=== PATIENT | male | born 1990 | race Caucasian/White ===

== ENCOUNTER 2020-07-03 17:08 | Emergency (ER) | payer OTHER ==
[~2020-07-03] VITALS: Ht 177.8 cm; Wt 100.0 kg
[2020-07-03] MEDS ORDERED: IV RINGERS SOLUTION,LACTATED 1,000 ML IV ONE ×2 (19:30→19:45)
[2020-07-03] MEDS ORDERED: KETOROLAC 30 MG/ML VIAL. IVP ONE (19:30)
--- NOTE | 2020-07-03 19:39 | PHYS DOC ---
Past History Past Medical History: Kidney Stones Past Surgical History: No Surgical History Alcohol Use: Occasionally General Adult EDM: Chief Complaint: FLANK PAIN HPI: HPI: "..It feels like I got another kidney stone..here on the right..This will be my fourth.. or there abouts.. 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 Pain radiates to his right groin. Patient has had 3-4 prior episodes of kidney stones which feel the same as this presentation. Has nausea. No history of trauma. No history of bad food. No history of travel outside [facility] area. No specific ill contacts attacks. No history of immunosuppression. Patient still has his appendix and gallbladder. Had a normal stool today. Has passed urine that was somewhat dark in color. No history of bad food intake. Is accompanied with his significant other they will drive for him if he gets pain meds. Review of Systems: Review of Systems: Constitutional: Denies fever or chills Eyes: Denies change in visual acuity HENT: Denies nasal congestion or sore throat Respiratory: Denies cough or shortness of breath Cardiovascular: Denies chest pain or edema GI: Complains of right flank abdominal pain, nausea,. Vomiting, bloody stools or diarrhea : Denies dysuria Musculoskeletal: Complains of right flank back pain. Integument: Denies rash Neurologic: Denies headache, focal weakness or sensory changes Endocrine: Denies polyuria or polydipsia Lymphatic: Denies swollen glands Psychiatric: Denies depression or anxiety Family History: Family History: See nursing for home meds Current Medications: Current Meds: Current Medications Medications (Trade) Dose Ordered Sig/Gisela Start Time Stop Time Status Last Admin Dose Admin Ketorolac Tromethamine (Toradol 30mg Vial) 30 mg 1X ONCE 07/03/20 19:30 07/03/20 19:31 DC Lactated Ringer's 1,000 ml @ 1,000 mls/hr 1X ONCE 07/03/20 19:30 07/03/20 20:29 Allergies: Allergies: Allergies Coded Allergies Type Severity Reaction Last Updated Verified No Known Drug Allergies 07/03/20 No Physical Exam: PE: Constitutional: Well developed, well nourished, moderate acute distress, non- toxic appearance. [] HENT: Normocephalic, atraumatic, bilateral external ears normal, oropharynx moist, no oral exudates, nose normal. [] Eyes: PERRLA, EOMI, conjunctiva normal, no discharge. [] Neck: Normal range of motion, no tenderness, supple, no stridor. [] Cardiovascular:Heart rate regular rhythm, no murmur [] Lungs & Thorax: Bilateral breath sounds clear to auscultation [] Abdomen: Bowel sounds decreased, soft, no tenderness, no masses, no pulsatile masses. [] Right flank back pain on percussion Skin: Warm, dry, no erythema, no rash. [] Back: No tenderness, right CVA tenderness. [] Extremities: No tenderness, no cyanosis, no clubbing, ROM intact, no edema. [] Neurologic: Alert and oriented X 3, normal motor function, normal sensory function, no focal deficits noted. [] Psychologic: Affect normal, judgement normal, mood normal. [] Current Patient Data: Vital Signs: Vital Signs Date Time Temp Pulse Resp B/P (MAP) Pulse Ox O2 Delivery O2 Flow Rate FiO2 07/03/20 19:13 97.6 88 18 126/89 (101) 98 Room Air EKG: EKG: [] Radiology/Procedures: Radiology/Procedures: [address] [address] IMAGING REPORT [address] [address] IMAGING REPORT Signed PATIENT: ALICE CAMPO ACCOUNT: [id number] : 1990 LOCATION: ER AGE: 30 SEX: M EXAM STATUS: REG ER ORD. PHYSICIAN: RAFAL MARTINEZ MD REASON: Rt flank and abdomen pain radiating into testicle. Hx:Kidney ston PROCEDURE: CT ABDOMEN PELVIS WO CONTRAST INDICATION: Reason: Rt flank and abdomen pain radiating into testicle. Hx:Kidney ston / Spl. Instructions: / History: . COMPARISON: None. TECHNIQUE: Axial CT images obtained through the abdomen and pelvis without contrast. One or more of the following individualized dose reduction techniques were utilized for this examination: 1. Automated exposure control; 2. Adjustment of the mA and/or kV according to patient size; 3. Use of iterative reconstruction technique. FINDINGS: No abdominal aortic aneurysm. No intrahepatic bile duct dilation. No peripancreatic fluid collection. Spleen unremarkable. No left-sided hydronephrosis. Urinary bladder is partially distended. Mild right-sided hydronephrosis and hydroureter with a 2 mm right ureterovesicular junction stone. Mild prominence the wall the urinary bladder. Could be from lack of distention. Small fat-containing umbilical hernia. Retrocecal appendix which does not appear grossly inflamed. No dilated loops of bowel to suggest obstruction. There is some prominent epidural fat within the spinal canal. IMPRESSION: * Right-sided hydronephrosis and hydroureter with distal ureter stone Electronically signed by: Violeta Price MD (07/03/2020 8:06 PM) [id number] DICTATED AND SIGNED BY: VIOLETA PRICE MD DATE: 07/03/201957 CC: RAFAL MARTINEZ MD; PCP,UNKNOWN ~MTH0 0 Signed PATIENT: ALICE CAMPO ACCOUNT: [id number] : 1990 LOCATION: ER AGE: 30 SEX: M EXAM STATUS: REG ER ORD. PHYSICIAN: RAFAL MARTINEZ MD REASON: Rt flank and abdomen pain radiating into testicle. Hx:Kidney ston PROCEDURE: CT ABDOMEN PELVIS WO CONTRAST INDICATION: Reason: Rt flank and abdomen pain radiating into testicle. Hx:Kidney ston / Spl. Instructions: / History: . COMPARISON: None. TECHNIQUE: Axial CT images obtained through the abdomen and pelvis without contrast. One or more of the following individualized dose reduction techniques were utilized for this examination: 1. Automated exposure control; 2. Adjustment of the mA and/or kV according to patient size; 3. Use of iterative reconstruction technique. FINDINGS: No abdominal aortic aneurysm. No intrahepatic bile duct dilation. No peripancreatic fluid collection. Spleen unremarkable. No left-sided hydronephrosis. Urinary bladder is partially distended. Mild right-sided hydronephrosis and hydroureter with a 2 mm right ureterovesicular junction stone. Mild prominence the wall the urinary bladder. Could be from lack of distention. Small fat-containing umbilical hernia. Retrocecal appendix which does not appear grossly inflamed. No dilated loops of bowel to suggest obstruction. There is some prominent epidural fat within the spinal canal. IMPRESSION: * Right-sided hydronephrosis and hydroureter with distal ureter stone Electronically signed by: Violeta Price MD (07/03/2020 8:06 PM) [id number] DICTATED AND SIGNED BY: VIOLETA PRICE MD DATE: 07/03/201957 CC: RAFAL MARTINEZ MD; PCP,UNKNOWN ~MTH0 [address] [place] [address] IMAGING REPORT Signed PATIENT: ALICE CAMPO ACCOUNT: [id number] : 1990 LOCATION: ER AGE: 30 SEX: M EXAM STATUS: REG ER ORD. PHYSICIAN: RAFAL MARTINEZ MD REASON: Rt flank and abdomen pain radiating into testicle. Hx:Kidney ston PROCEDURE: ACUTE ABDOMEN SERIES INDICATION: Reason: Rt flank and abdomen pain radiating into testicle. Hx:Kidney ston / Spl. Instructions: / History: COMPARISON: None. IMPRESSION: 3 views of chest and abdomen obtained. No focal airspace consolidation to suggest pneumonia. Cardiac silhouette is unremarkable. Air scattered throughout the large and small bowel in a grossly nonobstructive pattern. Electronically signed by: Violeta Price MD (07/03/2020 7:58 PM) [id number] DICTATED AND SIGNED BY: VIOLETA PRICE MD DATE: 07/03/201953 CC: RAFAL MARTINEZ MD; PCP,UNKNOWN ~MTH0 0 [] Heart Score: Risk Factors: Risk Factors: DM, Current or recent (<one month) smoker, HTN, HLP, family history of CAD, obesity. Risk Scores: Score 0 - 3: 2.5% MACE over next 6 weeks - Discharge Home Score 4 - 6: 20.3% MACE over next 6 weeks - Admit for Clinical Observation Score 7 - 10: 72.7% MACE over next 6 weeks - Early Invasive Strategies Course & Med Decision Making: Course & Med Decision Making Pertinent Labs and Imaging studies reviewed. (See chart for details) Patient remain on clear fluid diet push fluids. Take Tylenol and ibuprofen for pain. For marked pain may take Vicoprofen. Save stone if passed. Zofran for active vomiting. Follow up with primary. Flomax at night.. Follow up urology. Impression: 1. Renal Stone 2. Mild Hydronephrosis Rt. [] Hans Disclaimer: Hans Disclaimer: This electronic medical record was generated, in whole or in part, using a voice recognition dictation system. Departure Departure: Referrals: PCP,UNKNOWN (PCP) Scripts Tamsulosin Hcl (FLOMAX) 0.4 Mg Cap.er.24h 0.4 MG PO criselda night for stone for stone, #30 CAP.SR Prov: RAFAL MARTINEZ MD 07/03/20 Ondansetron Hcl (ZOFRAN) 4 Mg Tablet 8 MG PO QIDPRN PRN for nv, #30 TAB Prov: RAFAL MARTINEZ MD 07/03/20 Hydrocodone/Ibuprofen (HYDROCODONE-IBUPROFEN 7.5-200 ) 1 Each Tablet 1 TAB PO PRN Q6HRS PRN for PAIN, #30 TAB 0 Refills Prov: RAFAL MARTINEZ MD 07/03/20 RAFAL MARTINEZ MD Jul 03, 2020 19:39
[2020-07-03] MEDS ORDERED: MORPHINE SULFATE 10 MG/ML SYRINGE. SQ ONE (19:45)
[2020-07-03 19:49] LABS: BILIRUBIN,URINE NEG (NEG); CLARITY,URINE CLEAR; COLOR,URINE COLORLESS; GLUCOSE,URINE NEG (NEG); NITRITE,URINE NEG (NEG); UROBILINOGEN,URINE 0.2 mg/dL (0.2 mg/dL)
[2020-07-03 19:50] LABS: BACTERIA,URINE 0 /HPF (0-FEW); WBC,URINE 0 /HPF (0-4)
[2020-07-03 19:53] LABS: BASO % 0 % (0-3); EOS % 0 % (0-3); HEMATOCRIT 42.3 % (39.0-53.0); HEMOGLOBIN 14.3 g/dL (13.0-17.5); LYMPH # 1.4 x10^3/uL (1.0-4.8); LYMPH % 12 % (24-48); MEAN CORPUSCULAR HEMOGLOBIN 30 pg (25-35); MEAN CORPUSCULAR HGB CONC 34 g/dL (31-37); MEAN CORPUSCULAR VOLUME 90 fL (79-100); MONO # 0.5 x10^3/uL (0.0-1.1); MONO % 4 % (0-9); NEUT # 10.1 x10^3uL (1.8-7.7); NEUT % 84 % (31-73); PLATELET COUNT 245 x10^3/uL (140-400)
[2020-07-03] MEDS ORDERED: TAMSULOSIN 0.4 MG CAP.ER.24H. PO ONE (20:00)
[2020-07-03] MEDS ORDERED: ONDANSETRON PF 4 MG/2 ML VIAL. IVP ONE (20:00)
[2020-07-03] MEDS ORDERED: CIPROFLOXACIN HCL 500 MG TABLET PO ONE (20:00)
--- NOTE | 2020-07-03 20:01 | RAD ---
INDICATION: Reason: Rt flank and abdomen pain radiating into testicle. Hx:Kidney ston / Spl. Instruct ions: / History: COMPARISON: None. IMPRESSION: 3 views of chest and abdomen obtained. No focal airspace consolidation to suggest pneumonia. Cardiac silhouette is unremarkable. Air scattered throughout the large and small bowel in a grossly nonobstru ctive pattern. Electronically signed by: Mayank Price MD (07/03/2020 7:58 PM) [id number]
[2020-07-03 20:06] LABS: CREATININE 0.9 mg/dL (0.7-1.3); GFR 97.8
--- NOTE | 2020-07-03 20:09 | RAD ---
INDICATION: Reason: Rt flank and abdomen pain radiating into testicle. Hx:Kidney ston / Spl. Instruct ions: / History: . COMPARISON: None. TECHNIQUE: Axial CT images obtained through the abdomen and pelvis without contrast. One or more of the following individualized dose reduction techniques were utilized for this examinat ion: 1. Automated exposure control; 2. Adjustment of the mA and/or kV according to patient size; 3 . Use of iterative reconstruction technique. FINDINGS: No abdominal aortic aneurysm. No intrahepatic bile duct dilation. No peripancreatic fluid collection. Spleen unremarkable. No left-sided hydronephrosis. Urinary bladder is partially distended. Mild right-sided hydronephrosis and hydroureter with a 2 mm right ureterovesicular junction stone. Mi ld prominence the wall the urinary bladder. Could be from lack of distention. Small fat-containing umbilical hernia. Retrocecal appendix which does not appear grossly inflamed. No dilated loops of bowel to suggest obstruction. There is some prominent epidural fat within the spinal canal. IMPRESSION: * Right-sided hydronephrosis and hydroureter with distal ureter stone Electronically signed by: Mayank Price MD (07/03/2020 8:06 PM) [id number]
[2020-07-03 20:20] LABS: ALBUMIN 4.2 g/dL (3.4-5.0); ALBUMIN/GLOBULIN RATIO 1.2 (1.0-1.7); CALCIUM 9.3 mg/dL (8.5-10.1); DIRECT BILIRUBIN 0.1 mg/dL (0.0-0.2); MAGNESIUM 1.9 mg/dL (1.8-2.4); TOTAL BILIRUBIN 0.4 mg/dL (0.2-1.0); TOTAL PROTEIN 7.6 g/dL (6.4-8.2)
[2020-07-03 20:40] VITALS: BP 122/78
[2020-07-03] MEDS ORDERED: TAMS0.4C97 PO (20:40)
[2020-07-03] MEDS ORDERED: ONDA4TAB7 PO (20:40)
[2020-07-03] MEDS ORDERED: HYDR-1179 PO (20:40)
== END 2020-07-03 20:48 | disposition home or self-care (01) ==
LOC: ER 17:08
DX: N13.2 Hydronephrosis with renal and ureteral calculous obstruction (principal); R10.31 Right lower quadrant pain; R11.2 Nausea with vomiting, unspecified; R19.7 Diarrhea, unspecified; Z87.442 Personal history of urinary calculi
CPT/HCPCS: 36415; 74022; 74176; 80053; 80076; 81001; 83690; 83735; 85025; 96361; 96374; 99285; J1885; J7120